=== PATIENT | female | born 1955 | race Caucasian/White ===

== ENCOUNTER 2018-12-19 14:02 | Emergency (ER) | payer BC, OTHER ==
[2018-12-19 14:44] LABS: BASOPHILS % (AUTO) 0.8 % (0.0-5.0); EOSINOPHILS % (AUTO) 1.4 % (0.0-8.0); LYMPHOCYTES % (AUTO) 29.4 % (21.0-51.0); MEAN CORPUSCULAR HEMOGLOBIN 30.4 pg (27.0-33.0); MEAN CORPUSCULAR HGB CONC 34.9 g/dL (32.0-36.0); MEAN CORPUSCULAR VOLUME 87.1 fL (79-99); MONOCYTES % (AUTO) 4.9 % (3.0-13.0); NEUTROPHILS % (AUTO) 63.5 % (40.0-77.0); PLATELET COUNT (AUTO) 134 K/uL (130-400); RED CELL DISTRIBUTION WIDTH 14.3 % (11.0-15.5); WHITE BLOOD COUNT (AUTO) 4.6 K/uL (4.8-10.8)
[2018-12-19 14:52] LABS: CARBON DIOXIDE 24 mmol/L (21-32); CHLORIDE 98 mmol/L (101-111); CREATININE 0.8 mg/dL (0.5-1.5); GLOMERULAR FILTR. RATE CALC 77 mL/min (>60); GLUCOSE,RANDOM 337 mg/dL (70-105); POTASSIUM 3.8 mmol/L (3.5-5.1); SODIUM SERUM 134 mmol/L (136-145); UREA NITROGEN, BLOOD 16 mg/dL (7-18)
[2018-12-19] MEDS ORDERED: KETOROLAC TROMETHAMINE 15MG/ML ONE (14:54)
[2018-12-19 14:56] LABS: ALANINE AMINOTRANSFERASE 16 U/L (12-78); ALBUMIN 3.7 g/dL (3.5-5.0); ALCOHOL, BLOOD < 3 mg/dL (0-10); ASPARTATE AMINOTRANSFERASE 27 U/L (10-37); BILIRUBIN,TOTAL 1.2 mg/dL (0.2-1.0); TOTAL PROTEIN, SERUM 7.3 g/dL (6.0-8.3)
[2018-12-19 14:58] LABS: ACETAMINOPHEN < 1 mcg/mL (10-30); SALICYLATE < 2.8 mg/dL (2.8-20.0)
[2018-12-19 15:20] LABS: APPEARANCE,URINE Clear (CLEAR); BILIRUBIN,URINE Negative (NEGATIVE); COLOR,URINE Yellow (YELLOW); GLUCOSE, URINE (UA) >=1000 mg/dL (NEGATIVE); KETONES,URINE Negative (NEGATIVE); LEUKOCYTE ESTERASE ,URINE Small (NEGATIVE); NITRATE,URINE Negative (NEGATIVE); OCCULT BLOOD,URINE Negative (NEGATIVE); PH,URINE 7.5 (5.0-8.0); PROTEIN,URINE Negative (NEGATIVE)
[2018-12-19 15:29] LABS: AMPHET/METH SCREEN,URINE NEGATIVE (NEGATIVE); BARBITURATE SCREEN, URINE NEGATIVE (NEGATIVE); BENZODIAZEPINES SCREEN,URINE NEGATIVE (NEGATIVE); CANNABINOID SCREEN,URINE NEGATIVE (NEGATIVE); COCAINE SCREEN,URINE NEGATIVE (NEGATIVE); OPIATE SCREEN,URINE NEGATIVE (NEGATIVE); PHENCYCLIDINE SCREEN,URINE NEGATIVE (NEGATIVE)
[2018-12-19 16:05] LABS: RBC,URINE 0-1 /HPF (0-1)
[2018-12-19 16:06] LABS: BACTERIA,URINE Few /HPF (None Seen)
[2018-12-19] MEDS ORDERED: INSULIN HUMULIN R 100 UNIT/ML 3ML ONE (16:51)
[2018-12-19] MEDS ORDERED: SODIUM CHLORIDE 0.9% 1000ML 1,000 ML IV ONE (16:51)
== END 2018-12-19 19:09 | disposition home or self-care (01) ==
LOC: EDH 14:02
DX: F32.9 Major depressive disorder, single episode, unspecified (principal); M25.511 Pain in right shoulder; R45.851 Suicidal ideations; Z90.10 Acquired absence of unspecified breast and nipple; Z85.3 Personal history of malignant neoplasm of breast; Z88.0 Allergy status to penicillin; Z88.1 Allergy status to other antibiotic agents
CPT/HCPCS: 36415; 80053; 80305; 81001; 82948; 85025; 96372; 96374; 99285; G0480 ×2; G0481; J1815; J1885; J7030

== ENCOUNTER 2020-03-16 18:31 | Inpatient (IN) | payer BC ==
[~2020-03-16] VITALS: Ht 154.9 cm; Wt 64.5 kg
[2020-03-16 19:49] LABS: BASOPHILS % (AUTO) 0.5 % (0.0-5.0); EOSINOPHILS % (AUTO) 1.9 % (0.0-8.0); HEMATOCRIT 41.1 % (36-48); LYMPHOCYTES % (AUTO) 35.2 % (21.0-51.0); MEAN CORPUSCULAR HEMOGLOBIN 30.7 pg (27.0-33.0); MEAN CORPUSCULAR HGB CONC 35.5 g/dL (32.0-36.0); MEAN CORPUSCULAR VOLUME 86.5 fL (79-99); MONOCYTES % (AUTO) 5.6 % (3.0-13.0); NEUTROPHILS % (AUTO) 56.5 % (40.0-77.0); PLATELET COUNT (AUTO) 142 K/uL (130-400); RED BLOOD CELL COUNT(AUTO) 4.75 MIL/uL (4.00-5.50); RED CELL DISTRIBUTION WIDTH 12.9 % (11.0-15.5); WHITE BLOOD COUNT (AUTO) 5.9 K/uL (4.8-10.8)
[2020-03-16 19:59] LABS: CREATININE 0.8 mg/dL (0.5-1.5); POTASSIUM 3.3 mmol/L (3.5-5.1)
[2020-03-16 20:01] LABS: PROTHROMBIN TIME 10.9 SEC (9.6-11.6)
[2020-03-16 20:02] LABS: PARTIAL THROMBOPLASTIN TIME 23.8 SEC (26.3-35.5)
[2020-03-16 20:03] LABS: ALBUMIN 4.5 g/dL (3.5-5.0); BILIRUBIN,TOTAL 1.5 mg/dL (0.2-1.0); TOTAL PROTEIN, SERUM 8.4 g/dL (6.0-8.3)
[2020-03-16 20:17] LABS: APPEARANCE,URINE Clear (CLEAR); BILIRUBIN,URINE Negative (NEGATIVE); COLOR,URINE Yellow (YELLOW); GLUCOSE, URINE (UA) 250 mg/dL (NEGATIVE); KETONES,URINE Negative (NEGATIVE); LEUKOCYTE ESTERASE ,URINE Large (NEGATIVE); NITRATE,URINE Negative (NEGATIVE); OCCULT BLOOD,URINE Negative (NEGATIVE); PH,URINE 8.5 (5.0-8.0); PROTEIN,URINE Negative (NEGATIVE)
[2020-03-16 20:31] LABS: RBC,URINE 0-1 /HPF (0-1)
[2020-03-16 20:32] LABS: BACTERIA,URINE Few /HPF (None Seen); SQUAMOUS EPITHELIAL CELL,UR Few /HPF (0-2); TRANSITIONAL EPI CELLS,URINE Rare /HPF (None Seen)
[2020-03-16] MEDS ORDERED: POTASSIUM BICARB/CIT AC 25 MEQ TABLET.EFF ONE (20:45)
[2020-03-16 21:04] LABS: ERYTHROCYTE SEDIMENTATION RATE 8 MM/HR (0-30)
[2020-03-16] MEDS ORDERED: CEFTRIAXONE 1G VIAL ONE (21:32)
[2020-03-16] MEDS ORDERED: NITROGLYCERIN 1GM OINT 1 INCH/1GM TD ONE (23:02)
[2020-03-16] MEDS ORDERED: 0.9%NACL 1000ML 1,000 ML IV ONE (23:02)
[2020-03-16] MEDS ORDERED: ONDANSETRON 4MG INJ IVP PRN (23:45)
[2020-03-16] MEDS ORDERED: NITROGLYCERIN 0.4 MG SL TAB SL PRN (23:45)
[2020-03-17] MEDS ORDERED: ENOXAPARIN SODIUM 30 MG/0.3 ML SQ ONE (08:46)
[2020-03-17] MEDS ORDERED: FAMOTIDINE 20MG TAB ONE (08:46)
[2020-03-17] MEDS ORDERED: ASPIRIN 81MG CHEW TAB ONE (08:46)
[2020-03-17] MEDS: ASPIRIN 81 MG EC TAB PO SCH (09:00)
[2020-03-17] MEDS: ENOXAPARIN SODIUM 30 MG/0.3 ML SQ SCH (09:00)
[2020-03-17] MEDS: FAMOTIDINE 20MG TAB PO SCH ×3 (09:00→19:45)
[2020-03-17 09:27] LABS: HEMATOCRIT 37.8 % (36-48); MEAN CORPUSCULAR HEMOGLOBIN 30.3 pg (27.0-33.0); MEAN CORPUSCULAR HGB CONC 33.9 g/dL (32.0-36.0); MEAN CORPUSCULAR VOLUME 89.6 fL (79-99); RED BLOOD CELL COUNT(AUTO) 4.22 MIL/uL (4.00-5.50); RED CELL DISTRIBUTION WIDTH 13.4 % (11.0-15.5); WHITE BLOOD COUNT (AUTO) 4.7 K/uL (4.8-10.8)
[2020-03-17 09:48] LABS: ALANINE AMINOTRANSFERASE 15 U/L (12-78); ALBUMIN 3.5 g/dL (3.5-5.0); ASPARTATE AMINOTRANSFERASE 24 U/L (10-37); CARBON DIOXIDE 28 mmol/L (21-32); CHLORIDE 106 mmol/L (101-111); CREATINE KINASE, TOTAL 51 U/L (21-232); CREATININE 0.8 mg/dL (0.5-1.5); GLOMERULAR FILTR. RATE CALC 77 mL/min (>60); GLUCOSE,RANDOM 232 mg/dL (70-105); MYOGLOBIN 25 ng/mL (10-92); PHOSPHORUS 3.2 mg/dL (2.5-4.9); POTASSIUM 4.9 mmol/L (3.5-5.1); SODIUM SERUM 139 mmol/L (136-145); TOTAL PROTEIN, SERUM 6.9 g/dL (6.0-8.3); TROPONIN I < 0.04 ng/mL (0.00-0.06); UREA NITROGEN, BLOOD 14 mg/dL (7-18)
[2020-03-17] MEDS: NITROGLYCERIN 1GM OINT 1 INCH/1GM TD SCH ×3 (12:00→23:39)
[2020-03-17] MEDS ORDERED: NITROGLYCERIN 1GM OINT 1 INCH/1GM TD ONE (12:09)
[2020-03-17] MEDS ORDERED: MAGNESIUM 2GM PREMIX 50ML 50 ML IV PRN (14:15)
[2020-03-17] MEDS ORDERED: POTASSIUM CHLORIDE 20MEQ/100ML 100 ML IV PRN (14:15)
[2020-03-17] MEDS ORDERED: DIPHENHYDRAMINE HCL 25 MG CAPSULE PO PRN (14:15)
[2020-03-17] MEDS ORDERED: ZOLPIDEM TARTRATE 5 MG TAB PO PRN (14:15)
[2020-03-17] MEDS ORDERED: ACETAMINOPHEN 325 MG TAB PO PRN ×2 (14:15)
[2020-03-17] MEDS ORDERED: HYDRALAZINE 20MG/ML VIAL IV PRN (14:15)
[2020-03-17] MEDS ORDERED: MAG/ALUM/SIMETH 30 ML UDCUP PO PRN (14:15)
[2020-03-17] MEDS ORDERED: MORPHINE 2 MG SYG IV PRN (14:15)
[2020-03-17] MEDS ORDERED: LIDOCAINE HCL-MPF 1% 2ML VIAL IV PRN (14:15)
[2020-03-17] MEDS ORDERED: LORAZEPAM 2 MG/ML 1 ML VIAL IM PRN (14:15)
[2020-03-17] MEDS ORDERED: LACTULOSE 20 GM/30 ML UDCUP PO PRN (14:15)
[2020-03-17] MEDS ORDERED: ONDANSETRON 4MG INJ IV PRN (14:15)
[2020-03-17] MEDS ORDERED: DiphenhydrAMINE HCL 50 MG/ML VIAL IV PRN (14:15)
[2020-03-17] MEDS ORDERED: ACETAMINOPHEN WITH CODEINE 1 TAB TAB PO PRN (14:15)
[2020-03-17] MEDS ORDERED: GUAIFENESIN-DM 200/20 MG 10 ML PO PRN (14:15)
[2020-03-17] MEDS ORDERED: NITROGLYCERIN 0.4 MG SL TAB SL PRN (14:15)
[2020-03-17] MEDS ORDERED: LEVETIRACETAM 1,000 MG in 0.9%NACL 100ML 100 ML IV SCH ×2 (14:30→20:00)
[2020-03-17] MEDS: 0.9%NACL 1000ML 1,000 ML IV SCH ×2 (15:47→17:04)
[2020-03-17 16:28] VITALS: BP 143/71
[2020-03-17] MEDS: INSULIN HUMULIN R 100 UNIT/ML 3ML SQ SCH ×2 (17:02→20:21)
[2020-03-17] MEDS ORDERED: ESCI-8 PO (18:55)
[2020-03-17] MEDS ORDERED: LORA10TA7 PO (18:55)
[2020-03-17] MEDS ORDERED: GABA-533 PO (18:55)
[2020-03-17] MEDS ORDERED: LISI20TA24 PO (18:55)
[2020-03-17] MEDS ORDERED: DULO30CA52 PO (18:55)
[2020-03-17] MEDS ORDERED: PRAV40TA3 PO (18:55)
[2020-03-17] MEDS ORDERED: ALBU8.5H8 IH (18:55)
[2020-03-17] MEDS ORDERED: GLIM4TAB36 PO (18:55)
[2020-03-17] MEDS ORDERED: MV-M1TAB20 PO (18:55)
[2020-03-17] MEDS ORDERED: AEC81 PO (18:55)
[2020-03-17] MEDS ORDERED: METF-444 PO (18:55)
[2020-03-17] MEDS: ATORVASTATIN 40 MG TABLET PO SCH (19:45)
[2020-03-17 19:49] VITALS: BP 129/66
[2020-03-17 23:35] VITALS: BP_SYST 110; BP_SYST 114; BP_SYST 115; BP_DIAS 63; BP_DIAS 67; BP_DIAS 70
[2020-03-18] MEDS: 0.9%NACL 1000ML 1,000 ML IV SCH ×3 (02:42→20:38)
[2020-03-18 03:42] VITALS: BP 113/61
[2020-03-18 04:35] LABS: BASOPHILS % (AUTO) 0.5 % (0.0-5.0); EOSINOPHILS % (AUTO) 3.2 % (0.0-8.0); HEMATOCRIT 34.9 % (36-48); LYMPHOCYTES % (AUTO) 39.1 % (21.0-51.0); MEAN CORPUSCULAR HEMOGLOBIN 30.2 pg (27.0-33.0); MEAN CORPUSCULAR HGB CONC 33.2 g/dL (32.0-36.0); MEAN CORPUSCULAR VOLUME 90.9 fL (79-99); MONOCYTES % (AUTO) 7.8 % (3.0-13.0); NEUTROPHILS % (AUTO) 49.2 % (40.0-77.0); PLATELET COUNT (AUTO) 117 K/uL (130-400); RED BLOOD CELL COUNT(AUTO) 3.84 MIL/uL (4.00-5.50); RED CELL DISTRIBUTION WIDTH 13.3 % (11.0-15.5); WHITE BLOOD COUNT (AUTO) 4.1 K/uL (4.8-10.8)
[2020-03-18 04:52] LABS: ALBUMIN 3.1 g/dL (3.5-5.0); CREATININE 0.7 mg/dL (0.5-1.5); POTASSIUM 3.7 mmol/L (3.5-5.1)
[2020-03-18 05:03] LABS: B-TYPE NATRIURETIC PEPTIDE 42 pg/mL (0-100)
[2020-03-18 05:09] LABS: HEMOGLOBIN A1C 8.1 % (4.0-6.0)
[2020-03-18] MEDS: NITROGLYCERIN 1GM OINT 1 INCH/1GM TD SCH ×3 (05:29→18:00)
[2020-03-18] MEDS: INSULIN HUMULIN R 100 UNIT/ML 3ML SQ SCH ×4 (05:29→20:42)
[2020-03-18 08:10] VITALS: BP 140/73
[2020-03-18] MEDS: FAMOTIDINE 20MG TAB PO SCH ×4 (09:00→20:38)
[2020-03-18] MEDS: LISINOPRIL 10 MG TABLET PO SCH (11:06)
[2020-03-18] MEDS: ASPIRIN 81 MG EC TAB PO SCH (11:06)
[2020-03-18] MEDS: LEVETIRACETAM 500 MG TABLET PO SCH ×3 (11:06→20:37)
[2020-03-18] MEDS: DULOXETINE HCL 30 MG CAP PO SCH (11:06)
[2020-03-18] MEDS: ENOXAPARIN SODIUM 30 MG/0.3 ML SQ SCH (11:07)
[2020-03-18 11:25] VITALS: BP 128/68
[2020-03-18] MEDS ORDERED: LORAZEPAM 0.5 MG TABLET PO PRN (16:00)
[2020-03-18 16:35] VITALS: BP 137/72
[2020-03-18 20:15] VITALS: BP 124/68
[2020-03-18] MEDS: FLUOXETINE HCL 10 MG CAPSULE PO SCH (20:37)
[2020-03-18] MEDS: ATORVASTATIN 40 MG TABLET PO SCH (20:37)
[2020-03-18 23:16] VITALS: BP 158/87
[2020-03-19 03:36] VITALS: BP 146/90
[2020-03-19] MEDS: NITROGLYCERIN 1GM OINT 1 INCH/1GM TD SCH ×3 (05:26→12:00)
[2020-03-19] MEDS: 0.9%NACL 1000ML 1,000 ML IV SCH ×2 (05:26→21:39)
[2020-03-19] MEDS: INSULIN HUMULIN R 100 UNIT/ML 3ML SQ SCH ×4 (05:26→21:47)
[2020-03-19 08:33] VITALS: BP 128/70
[2020-03-19] MEDS: FAMOTIDINE 20MG TAB PO SCH ×4 (08:51→21:43)
[2020-03-19] MEDS: LEVETIRACETAM 500 MG TABLET PO SCH ×2 (08:51→21:43)
[2020-03-19] MEDS: DULOXETINE HCL 30 MG CAP PO SCH (08:51)
[2020-03-19] MEDS: ASPIRIN 81 MG EC TAB PO SCH (08:51)
[2020-03-19] MEDS: LISINOPRIL 10 MG TABLET PO SCH (08:52)
[2020-03-19] MEDS: FLUOXETINE HCL 10 MG CAPSULE PO SCH (08:52)
[2020-03-19] MEDS: ENOXAPARIN SODIUM 30 MG/0.3 ML SQ SCH (09:00)
[2020-03-19 12:00] VITALS: BP 132/70
[2020-03-19 16:22] VITALS: BP 157/87
[2020-03-19 19:05] VITALS: BP 157/77
[2020-03-19] MEDS: ATORVASTATIN 40 MG TABLET PO SCH (21:43)
[2020-03-19 23:20] VITALS: BP 131/72
[2020-03-20] MEDS: NITROGLYCERIN 1GM OINT 1 INCH/1GM TD SCH ×3 (01:31→12:00)
[2020-03-20 03:50] VITALS: BP 107/62
[2020-03-20] MEDS: ACETAMINOPHEN 325 MG TAB PO PRN ×2 (04:57→15:14)
[2020-03-20] MEDS: INSULIN HUMULIN R 100 UNIT/ML 3ML SQ SCH ×3 (07:30→16:30)
[2020-03-20 08:45] VITALS: BP 99/60
[2020-03-20] MEDS: LISINOPRIL 10 MG TABLET PO SCH (09:00)
[2020-03-20] MEDS: FAMOTIDINE 20MG TAB PO SCH ×2 (09:00→10:07)
[2020-03-20] MEDS: LEVETIRACETAM 500 MG TABLET PO SCH (10:04)
[2020-03-20] MEDS: ENOXAPARIN SODIUM 30 MG/0.3 ML SQ SCH (10:04)
[2020-03-20] MEDS: FLUOXETINE HCL 10 MG CAPSULE PO SCH (10:04)
[2020-03-20] MEDS: ASPIRIN 81 MG EC TAB PO SCH (10:04)
[2020-03-20] MEDS: DULOXETINE HCL 30 MG CAP PO SCH (10:04)
[2020-03-20 12:08] VITALS: BP 123/71
[2020-03-20] MEDS ORDERED: FLUO20CA30 PO (14:23)
[2020-03-20] MEDS ORDERED: LEVE-43 PO (14:23)
== END 2020-03-20 18:20 | disposition home or self-care (01) | DRG 101 ==
LOC: EDH 18:31 → EDHIP 22:00 → 3BH 03-17 15:54
PROVIDERS: ADMIT Internal Medicine Pulmonary Disease; ATTEND Internal Medicine Pulmonary Disease
DX: G40.209 Localization-related (focal) (partial) symptomatic epilepsy and epileptic syndromes with complex partial seizures, not intractable, without status epilepticus (principal); N39.0 Urinary tract infection, site not specified; E78.5 Hyperlipidemia, unspecified; F32.9 Major depressive disorder, single episode, unspecified; F41.1 Generalized anxiety disorder; R32 Unspecified urinary incontinence; I10 Essential (primary) hypertension; R41.3 Other amnesia; D64.9 Anemia, unspecified; E11.65 Type 2 diabetes mellitus with hyperglycemia; Z85.3 Personal history of malignant neoplasm of breast; Z90.12 Acquired absence of left breast and nipple; Z88.0 Allergy status to penicillin; Z88.8 Allergy status to other drugs, medicaments and biological substances
CPT/HCPCS: 36415; 70450; 70551; 71045; 80053; 80061; 81001; 82550; 82948; 83036; 83735; 83874; 83880; 84100; 84145; 84484; 85025; 85027; 85610; 85651; 85730; 87088; 93005; 93306; 93356; 93880; G0378; J0696; J1650; J1815; J1953; J7030